=== PATIENT | female | born 1955 | race Two or more races ===

== ENCOUNTER 2018-09-17 16:57 | Emergency (ER) | payer MEDICAID ==
[~2018-09-17] VITALS: Ht 162.6 cm; Wt 93.9 kg
[2018-09-17] MEDS ORDERED: KETOROLAC TROMETHAMINE 15 MG/ML VIAL ONE (17:57)
[2018-09-17] MEDS ORDERED: LORAZEPAM 0.5 MG TABLET ONE (17:58)
[2018-09-17] MEDS ORDERED: IV NS 0.9% 500 ML BAG IV ONE (18:00)
[2018-09-17] MEDS ORDERED: KETOROLAC TROMETHAMINE INJ 30 MG/ML VIAL IV ONE (18:00)
[2018-09-17] MEDS ORDERED: LORAZEPAM 0.5 MG TABLET PO ONE (18:00)
[2018-09-17 18:02] LABS: BASOPHILS # (AUTO) 0.1 /CMM (0.0-0.2); BASOPHILS % (AUTO) 0.7 % (0.0-2.0); EOSINOPHILS % (AUTO) 1.4 % (0.0-6.0); HEMATOCRIT 39 % (33-45); HEMOGLOBIN 12.9 g/dL (11.5-14.8); LYMPHOCYTES # (AUTO) 3.5 /CMM (0.8-4.8); LYMPHOCYTES % (AUTO) 36.3 % (20.0-44.0); MEAN CORPUSCULAR HGB CONC 34 g/dl (31.0-36.0); MEAN CORPUSCULAR VOLUME 85 fL (82-100); MONOCYTES # (AUTO) 0.6 /CMM (0.1-1.30); MONOCYTES % (AUTO) 6.7 % (2.0-12.0); NEUTROPHILS # (AUTO) 5.3 /CMM (1.8-8.9); NEUTROPHILS % (AUTO) 54.9 % (43.0-81.0); PLATELET COUNT (AUTO) 241 /CMM (150-450); RED BLOOD CELL COUNT(AUTO) 4.52 MIL/uL (4.0-5.2); WHITE BLOOD COUNT (AUTO) 9.7 K/uL (4.3-11.0)
--- NOTE | 2018-09-17 18:11 | NUR ---
BIB DAUGHTER, C/O ELDRIDGE, RT EYE BLURRED VISION, LT FACIAL/ARM/LEG NUMBNESS & WEAKNESS SINCE 3 AM YESTERDAY. HX OF TIA & WEAKNESS ON LT SIDE PER DAUGHTER. PT AAOX4, SPEAKING W/ LOWER BRULE LANGUAGE, DAUGHTER ASSISTING W/ TRANSLATION. DENIES CP, SOB, DIZZINESS @ THIS TIME. PT SEEN & EVAL'D BY DR. RIOJAS. PT RACHNA SWALLOWING TAB & WATER, NO ACUTE DISTRESS NOTED. WILL CONT TO MONITOR.
[2018-09-17 18:12] LABS: CALCIUM, SERUM 8.9 mg/dL (8.5-10.1); CARBON DIOXIDE 26 mmol/L (21-32); CHLORIDE 104 mmol/L (98-107); CREATININE 0.8 mg/dL (0.6-1.3); GLUCOSE 128 mg/dL (74-106); POTASSIUM 3.5 mmol/L (3.5-5.1); SODIUM SERUM 140 mmol/L (136-145); UREA NITROGEN, BLOOD 30 mg/dL (7-18)
[2018-09-17 18:18] LABS: ALANINE AMINOTRANSFERASE 47 U/L (12-78); ALBUMIN 3.6 g/dL (3.4-5.0); ALKALINE PHOSPHATASE 81 U/L (46-116); ASPARTATE AMINOTRANSFERASE 16 U/L (15-37); BILIRUBIN,DIRECT 0.1 mg/dL (0.0-0.2); BILIRUBIN,TOTAL 0.2 mg/dL (0.2-1.0); TOTAL PROTEIN, SERUM 7.3 g/dL (6.4-8.2)
[2018-09-17 18:27] LABS: CHOLESTEROL 231 mg/dL (<200); HDL CHOLESTEROL 27 mg/dL (40-60); LDL 124 mg/dL (0-99); TRIGLYCERIDES 527 mg/dL (30-150)
[2018-09-17] MEDS ORDERED: IV NS 0.9% 250 ML IV ONE (18:34)
[2018-09-17] MEDS ORDERED: CT SWABBABLE VALVE TRANS SET 1 EA INFUS.SET MC ONE (18:34)
[2018-09-17] MEDS ORDERED: IOHEXOL-350 100 ML VIAL IV ONE (18:34)
[2018-09-17 19:59] LABS: APPEARANCE,URINE Clear (CLEAR); BILIRUBIN,URINE Negative (NEGATIVE); BLOOD, URINE Negative Ery/uL (NEGATIVE); COLOR,URINE Yellow (YELLOW); KETONES,URINE Negative (NEGATIVE); LEUKOCYTE ESTERASE ,URINE Small (NEGATIVE); NITRITE, URINE Negative (NEGATIVE); PH,URINE 5.5 (5.0-8.0); PROTEIN,URINE Negative (NEGATIVE); UGLUCOSE Negative (NEGATIVE); UROBILINOGEN,URINE 0.2 EU/dL (0.2)
[2018-09-17 20:19] LABS: BACTERIA,URINE Few /HPF (None Seen); RBC,URINE 0-2 /HPF (0-2); SQUAMOUS EPITHELIAL CELL,UR Few /HPF (None Seen)
--- NOTE | 2018-09-17 20:31 | NUR ---
Patient discharged to home in stable condition. Pt stable, no deficits, urine test negative, explained to daughter with Rx given. iv line dc before dc. Written and verbal after care instructions given. Patient verbalizes understanding of instruction.
[2018-09-17 20:39] VITALS: BP 134/89
== END 2018-09-17 20:40 | disposition home or self-care (01) ==
LOC: ER 17:09
DX: S46.812A Strain of other muscles, fascia and tendons at shoulder and upper arm level, left arm, initial encounter (principal); R51 Headache; R20.2 Paresthesia of skin; I10 Essential (primary) hypertension; Z86.73 Personal history of transient ischemic attack (TIA), and cerebral infarction without residual deficits; X58.XXXA Exposure to other specified factors, initial encounter; Y93.89 Activity, other specified; Y92.89 Other specified places as the place of occurrence of the external cause; Y99.8 Other external cause status
CPT/HCPCS: 36415; 70496-TC; 70498-TC; 71045-TC; 80048-TC; 80061-TC; 80076-TC; 81000-TC; 84484-TC; 85025-TC; 85730-TC; J1885; J7040; J7050; Q9967